=== PATIENT | female | born 1985 | race Caucasian/White ===

== ENCOUNTER → 2020-08-28 16:26 | Outpatient (CLI) | payer BC, SELFPAY ==
[2017-07-24 10:20] VITALS: BMI 31.6
[2020-08-28 18:44] LABS: Hematocrit 37.3 % (37-47); Hemoglobin 11.7 g/dL (12.0-15.0); Mean Corp Hgb Conc 31.4 g/dL (32-36); Mean Corpuscular Hgb 28.7 pg (27.0-32.0); Mean Corpuscular Volume 91.6 fL (81-99); Platelet Count 277 K/mm3 (150-450); RBC Distribution Width CV 12.5 % (11.6-14.6); RBC Distribution Width SD 42.4 fl (35.1-43.9); Red Blood Count 4.07 M/mm3 (4.2-5.4); White Blood Count 5.7 K/mm3 (4.4-11.0)
[2020-08-28 18:58] LABS: Cholesterol 165 mg/dL (200); Glucose 79 mg/dL (74-106); High Density Lipoprotein 60 mg/dL; Triglycerides 53 mg/dL; Very Low Density Lipoprotein 11 mg/dL (5-40)
== END ==
PROVIDERS: Family Medicine; PCP Family Medicine; Referring Provider Family Medicine; Visit Provider Family Medicine
DX: Z00.00 Encounter for general adult medical examination without abnormal findings (principal)
CPT/HCPCS: 36415; 80061; 82947; 85027

== ENCOUNTER 2021-12-05 13:50 | Outpatient (CLI) | payer BC, SELFPAY ==
--- NOTE | 2021-12-05 13:54 | VDLE_ITS ---
Reason For Study: RLE PAIN RIGHT FV is compressible, spontaneous, phasic, competent and demonstrates normal augmentation. POP V is compressible, spontaneous, phasic, competent and demonstrates normal augmentation. T/P Trunk is compressible. PTV is compressible. RT PerV is compressible. CFV is partially compressible and dilated with thrombus noted in CFV. GSV is dilated and non-compressible, thrombus extends into the CFV and very proximal segment of FV. Non-compressible varocosities were noted in the proximal calf area. Procedure This is a venous duplex using B-mode, color flow and spectral Doppler. Exam performed in department. A preliminary report was called and/or faxed to Dr. Torres @ 2:[address] Torres will consult Dr. Carina Gaytan and then call PT. VL/Venous Duplex US, Unilateral Interpretation Summary Acute deep venous thrombosis right common femoral vein with thrombus extending from the right great saphenous vein into the common femoral vein. Superficial thrombophlebitis involving varicosities of the right proximal calf. Ordering Physician: John Torres Referring Physician: John Torres Performed By: Twyla Morley, MAGO, RVT
== END 2021-12-05 23:59 | disposition short-term general hospital (02) ==
PROVIDERS: PCP Family Medicine; Referring Provider Family Medicine; Visit Provider Family Medicine
DX: M79.606 Pain in leg, unspecified (principal)
CPT/HCPCS: 93971

== ENCOUNTER → 2022-09-18 | Outpatient (CLI) | payer BC, SELFPAY ==
--- NOTE | 2022-09-18 10:48 | ECHOD_ITS ---
Reason For Study: SEPTAL DEFECT Procedure This was a 2D Doppler, Color Flow transthoracic echocardiogram. Exam performed in department. Left Ventricle Normal LV size. Small membranosus VSD. Left ventricular systolic function is normal. The estimated ejection fraction is 55 %. No regional wall motion abnormalities noted. Right Ventricle Normal RV size. Normal systolic function. Atria Normal left atrium. Normal right atrium. Mitral Valve Normal mitral valve. Mild (1+) eccentric mitral valve insufficiency. Tricuspid Valve Normal tricuspid valve. Aortic Valve Normal aortic valve. Trisinus/trileaflet aortic valve. Pulmonic Valve Normal pulmonic valve. Trivial pulmonic valve insufficiency. Great Vessels Normal aortic root. The pulmonary artery is normal size. Normal inferior vena cava. Pericardium/Pleural No pericardial effusion. MMode/2D Measurements & Calculations LVIDd: 5.9 cm IVSd: 0.62 cm Ao root diam: 2.7 cm LVIDs: 4.3 cm LVPWd: 0.67 cm RVDd: 3.1 cm FS: 27.2 % LAV(MOD-bp): 54.0 ml LVAd ap4: 31.8 cm2 SV(MOD-sp4): 62.7 ml LAV(MOD-bp) Indexed: 29.1 ml/m2 LVLd ap4: 7.2 cm LAV(MOD-sp2): 44.3 ml EDV(MOD-sp4): 115.8 ml LAV(MOD-sp4): 47.8 ml EDV(sp4-el): 119.8 ml LVAs ap4: 19.2 cm2 LVLs ap4: 5.9 cm ESV(MOD-sp4): 53.2 ml ESV(sp4-el): 52.9 ml EF(MOD-sp4): 54.1 % EF(sp4-el): 55.9 % SV(sp4-el): 66.9 ml LA A4 area: 18.8 cm2 LA dimension(2D): 3.1 cm RA A4 area: 16.2 cm2 Time Measurements MV dec time: 0.12 sec Doppler Measurements & Calculations MV E max uzair: 92.3 cm/sec Lat Peak E' Uzair: 13.3 cm/sec Med Peak E' Uzair: 10.5 cm/sec MV A max uzair: 47.7 cm/sec E/E' lat: 7.0 E/E' med: 8.8 MV E/A: 1.9 MV V2 max: 123.4 cm/sec Ao V2 max: 109.9 cm/sec MV max P.1 mmHg MV dec slope: 784.4 cm/sec2 Ao max P.8 mmHg MV V2 mean: 64.4 cm/sec Ao V2 mean: 83.4 cm/sec MV mean P.9 mmHg Ao mean P.1 mmHg MV V2 VTI: 32.9 cm Ao V2 VTI: 27.2 cm LV V1 max: 100.8 cm/sec MR max uzair: 378.5 cm/sec PA V2 max: 105.5 cm/sec LV V1 max P.1 mmHg MR max P.3 mmHg PA V2 mean: 74.5 cm/sec LV V1 mean P.5 mmHg LV V1 mean: 74.3 cm/sec LV V1 VTI: 23.2 cm TR max uzair: 232.4 cm/sec TR max P.6 mmHg ECHO/Echo Complete Interpretation Summary Normal LV size. Left ventricular systolic function is normal. The estimated ejection fraction is 55 %. Small membranosus VSD Mild (1+) eccentric mitral valve insufficiency. Ordering Physician: John Torres Referring Physician: John Torres Performed By: Idalmis Villegas RCS
== END | disposition home or self-care (01) ==
LOC: CVS 10:46
PROVIDERS: PCP Family Medicine; Referring Provider Family Medicine; Visit Provider Family Medicine
DX: Q21.0 Ventricular septal defect (principal)
CPT/HCPCS: 93306